=== PATIENT | female | born 1990 | race Caucasian/White ===

== ENCOUNTER 2019-10-14 16:35 | Emergency (ER) | payer OTHER, SELFPAY ==
[2019-10-14 17:27] VITALS: BP 131/81; PULSE 83; RESP 16; TEMP 37.3; O2SAT 100
--- NOTE | 2019-10-14 17:51 | ED.GENADULT ---
HPI - General Adult General Chief complaint: Upper Respiratory Infection <González Lin PA-C - Last Filed: 10/14/19 17:57> Stated complaint: ST <González Lin PA-C - Last Filed: 10/14/19 17:57> Time Seen by Provider: 10/14/19 17:40 <JAG Beatty Last Filed: 10/14/19 17:57> Source: patient <González Lin PA-C - Last Filed: 10/14/19 17:57> Mode of arrival: ambulatory <JAG Beatty Last Filed: 10/14/19 17:57> Limitations: no limitations <González Lin PA-C - Last Filed: 10/14/19 17:57> History of Present Illness HPI narrative: Patient is a 29-year-old female who presents with sore throat for 2 days with subjective fever with chills denies any other URI symptoms or any vomiting or diarrhea took [id number] medications this morning with minimal improvement notes moderate aching pain to the throat made worse with swallowing. <González Lin PA-C - Last Filed: 10/14/19 17:57> Related Data Allergies/adverse reactions: Allergies Allergy/AdvReac Type Severity Reaction Status Date / Time NKDA Allergy Mild Uncoded 03/05/10 12:45 <González Lin PA-C - Last Filed: 10/14/19 17:57> Review of Systems Review of Systems: All systems reviewed & are unremarkable except as noted in HPI and below <González Lin PA-C - Last Filed: 10/14/19 17:57> [facility] Family History Family History: Family History (Updated 12/14/17 @ 10:06 by DOCTOR UNKNOWN) Grandparent Diabetes mellitus Cerebrovascular accident Sibling Family history of mental disorder Depression Mother Depression Family history of chronic obstructive pulmonary disease <González Lin PA-C - Last Filed: 10/14/19 17:57> Social History Social History: Social History (Updated 10/14/19 @ 17:52 by González Lin PA-C) Smoking status: Never smoker Substance use type: marijuana Gender identity (if verbalized by the patient): Male <JAG Beatty Last Filed: 10/14/19 17:57> Exam Narrative: Exam Narrative: GENERAL: Well-appearing, well-nourished, and in no acute distress. HEAD: Normocephalic, atraumatic. EYES: PERRLA and EOMI. ENT: Nares clear, no rhinorrhea or epistaxis. Mucous membranes moist. Oropharynx with erythema and tonsillar hypertrophy and without exudate or other lesions. Bilateral TMs pearly petersen nonbulging. Uvula midline no trismus or drooling NECK: Supple. anterior adenopathy noted CHEST: Clear to auscultation. No respiratory distress. No wheezes rales or rhonchi HEART: Regular rate and rhythm. No murmur heard. EXTREMITIES: Normal range of motion. No edema. SKIN: Warm, dry, no rash. NEURO: No focal deficits. Alert and oriented x3. PSYCH: Normal mood and affect. Cranial nerves II through XII grossly intact <JAG Beatty Last Filed: 10/14/19 17:57> Course Course Emergency Course: Patient with strep pharyngitis in the room in no distress <JAG Beatty Last Filed: 10/14/19 17:57> Vital Signs Vital signs: Vital Signs Temperature 99.2 F 10/14/19 17:27 Pulse Rate 83 10/14/19 17:27 Respiratory Rate 16 10/14/19 17:27 Blood Pressure 131/81 10/14/19 17:27 Pulse Oximetry 100 10/14/19 17:27 Temperature 99.2 F 10/14/19 17:27 Pulse Rate 83 10/14/19 17:27 Respiratory Rate 16 10/14/19 17:27 Blood Pressure 131/81 10/14/19 17:27 Pulse Oximetry 100 10/14/19 17:27 <JAG Beatty Last Filed: 10/14/19 17:57> Vital Signs Temperature 99.2 F 10/14/19 17:27 Pulse Rate 83 10/14/19 17:27 Respiratory Rate 16 10/14/19 17:27 Blood Pressure 131/81 10/14/19 17:27 Pulse Oximetry 100 10/14/19 17:27 Temperature 99.2 F 10/14/19 17:27 Pulse Rate 83 10/14/19 17:27 Respiratory Rate 16 10/14/19 17:27 Blood Pressure 131/81 10/14/19 17:27 Pulse Oximetry 100 10/14/19 17:27 <Kelly Monroe MD - Last Filed: 10/14/19
[2019-10-14] MEDS: IBUPROFEN 600 MG TABLET PO (17:54)
== END 2019-10-14 18:35 | disposition home or self-care (01) ==
LOC: ANHED 18:07
PROVIDERS: Emergency Provider General Practice
DX: J02.0 Streptococcal pharyngitis (principal)
CPT/HCPCS: 87880; 96372; 99283; A9270; J1100

== ENCOUNTER 2022-01-06 09:09 | Emergency (ER) | payer OTHER, SELFPAY ==
[2022-01-06 09:18] VITALS: BP 132/74; PULSE 108; RESP 18; TEMP 37.3; O2SAT 99
--- NOTE | 2022-01-06 09:42 | ED.GENADULT ---
HPI - General Adult General Chief complaint: Unspecified Stated complaint: body aches, fever, headache Time Seen by Provider: 01/06/22 09:27 History of Present Illness HPI narrative: 31-year-old female presents to the emergency room for evaluation of a headache and body aches. Patient is also reporting a subjective fever. Patient unknown if she has been exposed to anybody with COVID or influenza. Patient denies shortness of breath, cough, difficulty breathing, nausea vomiting, sore throat, or sinus congestion. Related Data Allergies Allergy/AdvReac Type Severity Reaction Status Date / Time No Known Allergies Allergy Verified 01/06/22 09:20 Review of Systems Review of Systems: CONSTITUTIONAL: Reports fever EYES: Denies visual changes, redness, or discharge. ENT: Denies rhinorrhea, congestion, sore throat, or otalgia. CARDIOVASCULAR: Denies chest pain, palpitations, or edema. RESPIRATORY: Denies cough or dyspnea. GASTROINTESTINAL: Denies abdominal pain, nausea, vomiting, or diarrhea. GENITOURINARY: Denies dysuria or hematuria. SKIN: Denies rash or itching. MUSCULOSKELETAL: Reports body aches NEUROLOGIC: Denies headache, numbness, dizziness, or weakness. PSYCHIATRIC: Denies anxiety or depression. [facility] Family History Family History Grandparent Diabetes mellitus Cerebrovascular accident Sibling Family history of mental disorder Depression Mother Depression Family history of chronic obstructive pulmonary disease Social History Social History Smoking status: Never smoker Substance use type: marijuana Gender identity (if verbalized by the patient): Male Exam Narrative: GENERAL: Well-nourished, appears ill. HEAD: Normocephalic, atraumatic. EYES: PERRLA and EOMI. ENT: Nares clear, no rhinorrhea or epistaxis. Mucous membranes moist. Oropharynx without tonsillar hypertrophy exudate or other lesions. Bilateral TMs pearly petersen nonbulging NECK: Supple. No adenopathy or masses. No carotid bruits or JVD CHEST: Clear to auscultation. No respiratory distress. No wheezes rales or rhonchi HEART: Regular rate and rhythm. No murmur heard. Normal peripheral pulses. ABDOMEN: Soft, nontender, obese, normal active bowel sounds. EXTREMITIES: Normal range of motion. No edema. SKIN: Warm, dry, no rash. NEURO: No focal deficits. Alert and oriented x3. PSYCH: Normal mood and affect. Course Vital Signs Vital signs: Vital Signs Temperature 37.3 C 01/06/22 09:18 Pulse Rate 108 H 01/06/22 09:18 Respiratory Rate 18 01/06/22 09:18 Blood Pressure 132/74 01/06/22 09:18 Pulse Oximetry 99 01/06/22 09:18 Temperature 37.3 C 01/06/22 09:18 Pulse Rate 108 H 01/06/22 09:18 Respiratory Rate 18 01/06/22 09:18 Blood Pressure 132/74 01/06/22 09:18 Pulse Oximetry 99 01/06/22 09:18 Medical Decision Making Vital Signs Vital Signs: Vital Signs Temperature 37.3 C 01/06/22 09:18 Pulse Rate 108 H 01/06/22 09:18 Respiratory Rate 18 01/06/22 09:18 Blood Pressure 132/74 01/06/22 09:18 Pulse Oximetry 99 01/06/22 09:18 Temperature 37.3 C 01/06/22 09:18 Pulse Rate 108 H 01/06/22 09:18 Respiratory Rate 18 01/06/22 09:18 Blood Pressure 132/74 01/06/22 09:18 Pulse Oximetry 99 01/06/22 09:18 Lab Data Labs: Lab Results 01/06/22 Range/Units 09:34 Influenza A (RT-PCR) Negative (Negative) Influenza B (RT-PCR) Negative (Negative) SARS-CoV-2 RNA (RT-PCR) Positive A Discharge Plan Discharge Clinical Impression: COVID Patient Disposition: Home, Self-Care Condition: Stable Instructions: Antibiotic Form Additional Instructions: Recommend taking Tylenol for body aches and fever. Follow-up with TRAFFIC SAFETY ADMINISTRATOR as necessary. Continue to hydrate. Recommend quarantining for 5 days following onset of symptoms. Prescriptions: No Action a
[2022-01-06 10:19] LABS: Influenza A QL RT-PCR Negative (Negative); Influenza B QL RT-PCR Negative (Negative); SARS-CoV-2 RNA PCR Positive
[2022-01-06 11:20] VITALS: BP 129/74; PULSE 97; RESP 18; O2SAT 99
== END 2022-01-06 11:22 | disposition home or self-care (01) ==
PROVIDERS: Emergency Medicine; Emergency Provider Nurse Practitioner Family; PCP Advanced Practice Midwife
DX: U07.1 COVID-19 (principal)
CPT/HCPCS: 87502; 99283; C9803; U0003; U0005

== ENCOUNTER 2022-05-21 06:37 | Inpatient (IN) | payer OTHER, SELFPAY ==
[2022-05-21] VITALS (138 sets, daily range): BP systolic 86–164; BP diastolic 46–98; PULSE 66–136; RESP 15–17; TEMP 36.6–37.2; O2SAT 74–100; BMI 51.5
[2022-05-21 07:23] LABS: Basophils Percent Auto 0.3 % (0.2-1.2); Eosinophils Absolute Auto 0.1 K/mm3 (0-0.3); Eosinophils Percent Auto 0.6 % (0-4.4); Hematocrit 37.5 % (37.0-47.0); Hemoglobin 12.3 g/dL (12.0-15.0); Immature Granulocyte Absolute 0.12 K/mm3 (0.00-0.031); Immature Granulocyte Percent A 0.8 % (0-0.5); Lymphocytes Percent Auto 19.8 % (18.3-44.2); Mean Corpuscular HGB Conc 32.8 g/dl (32-36); Mean Corpuscular Hemoglobin 29.3 pg (26-34); Mean Corpuscular Volume 89.3 fl (80-100); Mean Platelet Volume 10.6 fl (7.4-10.4); Monocytes Percent Auto 6.3 % (2.6-8.5); Neutrophils Absolute Auto 11.3 K/mm3 (1.3-6.7); Neutrophils Percent Auto 72.2 % (45.5-73.1); Platelet Count Result 265 k/mm3 (150-375); Red Cell Distribution Width 14.2 % (11.5-14.5); White Blood Count 15.7 K/mm3 (4.5-10.0)
--- NOTE | 2022-05-21 07:33 | LDADM ---
This patient, Zofia Rodríguez, was admitted to Labor/Delivery/Recovery 105 on 05/21/22 at 06:37. Plans for labor, pain management and were discussed with patient. Patient/family oriented to hospital policies and general routines including ID bracelet, bed and alarms, visiting hours, pain management, procedures, bathroom and other care routines, personal items, smoking policy, room service/diet and guest tray routines, infant security routines, and visiting hours. Patient/Family are encouraged to report perceived risks to care and to ask questions if they do not understand what they are told or what they should do. See OBIX for further documentation.
[2022-05-21 07:45] LABS: Glucose Point of Care 98 mg/dl (65-105)
[2022-05-21] MEDS: AMPICILLIN 2 GM/NS 100 ML 2 GM/100 ML BAG IVPB (07:56)
[2022-05-21] MEDS: LACTATED RINGERS 1,000 ML 125 ML IV CONT ×3 (07:56→16:04)
--- NOTE | 2022-05-21 09:01 | WPDOBADMIT ---
Obstetrics - Admit Note Admission Note: record reviewed. No pertinent additions to the history and/or any subsequent changes in the physical findings that are not consistent with the expected course of the were found. IOL at 39 weeks gestation, GDMA-2, 5 units NPH at hs, hx covid during , GBS positive, anticipate vaginal delivery Additions to the history and/or subsequent changes in the physical findings follow. None.
[2022-05-21] MEDS: OXYTOCIN 30 UNITS/NS 500 ML 30 UNITS/500 ML BAG IV CONT (09:32)
--- NOTE | 2022-05-21 09:55 | WPDANESEPP ---
Anes - Eval Pre Procedure Procedure: labor epidural Date/Time: 05/21/22 09:55 Preop Diagnosis: labor pain Pre Op Diagnosis: IOL Patient Data Age: 32 Gender: F Height: 1.63 m Weight: 136 kg Last Vital Signs Pulse 90 05/21/22 09:01 BP 137/76 05/21/22 09:01 O2 Del Method Room Air 05/21/22 07:30 Allergies Allergy/AdvReac Type Severity Reaction Status Date / Time No Known Allergies Allergy Verified 05/03/22 13:11 Home Medications Medication Instructions Recorded Confirmed Type aspirin 81 mg tablet 81 mg PO DAILY 05/03/22 05/21/22 History insulin NPH isoph U-100 human 100 5 unit subcut HS 05/03/22 05/21/22 History unit/mL subcutaneous suspension (Humulin N NPH U-100 Insulin (isophane susp)) prenat.vits,maikol,fkh-rnzv-qcthe 1 tablet PO DAILY 05/03/22 05/21/22 History Laboratory Tests 05/21/22 05/21/22 05/21/22 07:18 07:18 07:18 WBC 15.7 K/mm3 H K/mm3 (4.5-10.0) RBC 4.20 M/mm3 M/mm3 (4.2-5.4) Hgb 12.3 g/dL g/dL (12.0-15.0) Hct 37.5 % % (37.0-47.0) MCV 89.3 fl fl (80-100) MCH 29.3 pg pg (26-34) MCHC 32.8 g/dl g/dl (32-36) RDW 14.2 % % (11.5-14.5) Plt Count 265 k/mm3 k/mm3 (150-375) MPV 10.6 fl H fl (7.4-10.4) Immature Gran % (Auto) 0.8 % H % (0-0.5) Neut % (Auto) 72.2 % % (45.5-73.1) Lymph % (Auto) 19.8 % % (18.3-44.2) [place] % (Auto) 6.3 % % (2.6-8.5) Eos % (Auto) 0.6 % % (0-4.4) Baso % (Auto) 0.3 % % (0.2-1.2) Lymph # (Auto) 3.10 K/mm3 K/mm3 (0.9-3.2) [place] # (Auto) 1.0 K/mm3 H K/mm3 (0.1-0.6) Eos # (Auto) 0.1 K/mm3 K/mm3 (0-0.3) Baso # (Auto) 0.0 K/mm3 K/mm3 (0.0-0.1) Abs Immat Gran (auto) 0.12 K/mm3 H K/mm3 (0.00-0.031) Absolute Neuts (auto) 11.3 K/mm3 H K/mm3 (1.3-6.7) Absolute Nucleated RBC 0.0 K/mm3 K/mm3 (0.0-0.012) Nucleated RBC % 0.0 % % (0.0-0.2) POC Capillary Glucose RPR Pending Blood Type A Positive Antibody Screen Negative 05/21/22 07:23 WBC RBC Hgb Hct MCV MCH MCHC RDW Plt Count MPV Immature Gran % (Auto) Neut % (Auto) Lymph % (Auto) [place] % (Auto) Eos % (Auto) Baso % (Auto) Lymph # (Auto) [place] # (Auto) Eos # (Auto) Baso # (Auto) Abs Immat Gran (auto) Absolute Neuts (auto) Absolute Nucleated RBC Nucleated RBC % POC Capillary Glucose 98 mg/dl mg/dl (65-105) RPR Blood Type Antibody Screen Patient hx anesthesia problems: none Family hx anesthesia problems: none Results Review: All pre-operative results and documents have been reviewed as part of the pre-operative evaluation. [facility] Family History Family History Grandparent Diabetes mellitus Cerebrovascular accident Hypertension A-fib Sibling Depression Family history of mental disorder Mother Depression Family history of chronic obstructive pulmonary disease Social History Social History Smoking status: Never smoker Substance use: current Substance use type: marijuana Last use: month ago--march 2022 Gender identity (if verbalized by the patient): Male Spiritual care concerns: No Exam Day of Procedure 05/21/22 09:55
[2022-05-21 11:13] LABS: Amphetamine Screen Urine Negative (Negative); Barbiturate Screen Urine Negative (Negative); Benzodiazepines Screen Urine Negative (Negative); Cannabinoid Screen Urine Negative (Negative); Cocaine Screen Urine Negative (Negative); Methadone Screen Urine Negative (Negative); Opiate Screen Urine Negative (Negative); Phencyclidine Screen Urine Negative (Negative)
[2022-05-21] MEDS: AMPICILLIN 1 GM/NS 50 ML 1 GM/50 ML BAG IVPB ×4 (12:00→23:49)
[2022-05-21 12:16] LABS: Glucose Point of Care 94 mg/dl (65-105)
[2022-05-21 16:48] LABS: Glucose Point of Care 84 mg/dl (65-105)
[2022-05-21 20:16] LABS: Glucose Point of Care 72 mg/dl (65-105)
[2022-05-21 21:43] LABS: Glucose Point of Care 73 mg/dl (65-105)
[2022-05-21 23:59] LABS: Glucose Point of Care 70 mg/dl (65-105)
[2022-05-22] VITALS (91 sets, daily range): BP systolic 103–166; BP diastolic 63–120; PULSE 56–126; RESP 16–20; TEMP 36.7–37.3; O2SAT 84–100
[2022-05-22 02:45] LABS: Glucose Point of Care 120 mg/dl (65-105)
[2022-05-22 02:45] LABS: Glucose Point of Care 84 mg/dl (65-105)
[2022-05-22] MEDS: LACTATED RINGERS 1,000 ML 125 ML IV CONT (03:12)
[2022-05-22] MEDS: AMPICILLIN 1 GM/NS 50 ML 1 GM/50 ML BAG IVPB (03:47)
[2022-05-22] MEDS: miSOPROStol 200 MCG TABLET 1000 MCG (05:00)
--- NOTE | 2022-05-22 05:17 | P.PCNOB_ITS ---
OB - Delivery Note Procedure Delivery date: 05/22/22 Procedure: Events: Gestational Diabetes and Positive Group B Strep (GBS) Induction method: Per Pitocin Protocol Delivery augmentation: Rupture of Membranes Delivery monitor: External FHT and Internal Uterine Route of delivery: Laceration Description: Perineal - 2nd Degree and Vaginal Delivery repair: vicryl Specimen: Yes Quantitative Blood Loss (ml): 200 Anesthesia type: Epidural Disposition: Floor [place] Baby Date of : 05/22/22 Time of : 04:48 Weeks of gestation at delivery: 39 gender: Female Weight (pounds): 9 Weight (ounces): 3 presentation: vertex Placenta delivery description: Spontaneous Cord Vessel Description: 3 Vessels and Clamped/Cut Narrative: head delivered OA,no rotation, reached in and posterior shoulder unable to deliver. yossi and suprapubic pressure from maternal left. able to rotate shoulder and was able to slowly deliver it under the pubic bone, baby followed slowly, cord around neck x 1 body x 1, baby moving all extremities, baby to warmer for further evaluation, newspaper delivery counselor at delivery
[2022-05-22] MEDS: CLINDAMYCIN 900 MG/D5W 50 ML 900 MG/50 ML PIGGYBACK 50 MG IVPB (05:25)
[2022-05-22] MEDS: DEXTROSE 5% IVPB (05:50)
[2022-05-22] MEDS: GENTAMICIN SULFATE IVPB (05:50)
[2022-05-22] MEDS: WITCH HAZEL 40 PADS 1 PAD TOPICAL (06:47)
[2022-05-22] MEDS: BENZOCAINE 20% AER SPR (*SP) 56 GM CAN 1 SPRAY TOPICAL (06:47)
[2022-05-22] MEDS: IBUPROFEN 600 MG TABLET PO ×2 (06:47→13:04)
--- NOTE | 2022-05-22 07:48 | PC.NURSE ---
Patient transferred to post room # via ( 563 ). Support person present. Oriented to unit, room, information board, rooming in, admission packet and security measures. Patient verbalizes understanding.
[2022-05-22] MEDS: MULTIVIT/MIN/PREN/FOL AC/IRON TABLET 1 TAB PO (08:21)
[2022-05-22] MEDS: LANOLIN (LANSINOH) 7.5 GM CREAM 1 APPLIC TOPICAL (08:21)
[2022-05-22] MEDS: DOCUSATE SODIUM 100 MG CAPSULE PO ×2 (08:21→16:50)
[2022-05-22] MEDS: TETANUS,DIPHTHERIA,AC PERTUSSIS ADULT (0.5 ML) BOOSTRIX IM (16:46)
[2022-05-23 00:30] VITALS: BP 125/76; PULSE 87; RESP 18; TEMP 36.6; O2SAT 99
[2022-05-23] MEDS: IBUPROFEN 600 MG TABLET PO ×2 (04:31→19:11)
[2022-05-23 04:34] VITALS: BP 118/71; PULSE 76; RESP 18; TEMP 36.4; O2SAT 100
[2022-05-23 05:17] LABS: Hematocrit 33.1 % (37.0-47.0); Hemoglobin 10.6 g/dL (12.0-15.0)
[2022-05-23 07:05] LABS: Rapid Plasma Reagin Non-Reactive (NonReactive)
[2022-05-23 08:00] VITALS: BP 125/77; PULSE 83; RESP 18; TEMP 36.4; O2SAT 99
--- NOTE | 2022-05-23 08:22 | PM.OBPNVD ---
OB - PN: Subj Subjective Date/time seen: 05/23/22 08:22 Patient comments: no complaints, pain well controlled, incisional pain, tolerating diet and flatus present OB - PN: Obj Data Labs CBC & Chem 7: 05/23/22 05:04 Labs: Laboratory Results - last 24 hr 05/21/22 05/23/22 07:18 05:04 Hgb 10.6 L Hct 33.1 L RPR Non-reactive OB - PN A/P Plan day: 1 Plan: routine care Comments: No problems, routine care Time Spent With Patient Time: Total time spent is greater than 50% in coordination of care (as documented) at patient's floor/unit and/or counseling patient: Exam Const: General: comfortable, no acute distress and alert Resp: Effort & Inspection: normal respiratory effort Auscultation: no crackles, no rales and no rhonchi Cardio: Rate: regular rate Heart sounds: no click, no murmurs and no rubs GI: Inspection: non-distended GI Palp: No Tenderness to palpation present (GI) Auscultation: normal bowel sounds Other: Incision - CDI Extrem: General: normal to inspection, no pedal edema and no calf tenderness
--- NOTE | 2022-05-23 08:56 | WPDANLDPN2 ---
Anes-Prog Note L&D Date/Time: 05/23/22 08:56 Comfortable throughout: labor and delivery Neuraxial method: epidural Epidural/Spinal procedure site: clean & non-tender Neuro status: Neuro function grossly intact. Cardiovascular status: normal Respiratory status: normal Airway patency: baseline Mental status: baseline Post-Op hydration status: normal Vital Signs: Last Vital Signs Temp 36.4 C 05/23/22 04:34 Pulse 76 05/23/22 04:34 Resp 18 05/23/22 04:34 BP 118/71 05/23/22 04:34 Pulse Ox 100 05/23/22 04:34 O2 Del Method Room Air 05/22/22 20:28 Pain score (VAS): 1 Patient feedback: Patient satisfied with anesthetic care.
[2022-05-23] MEDS: MULTIVIT/MIN/PREN/FOL AC/IRON TABLET 1 TAB PO (12:38)
[2022-05-23] MEDS: DOCUSATE SODIUM 100 MG CAPSULE PO (12:38)
--- NOTE | 2022-05-23 13:52 | PC.NURSE ---
Introductions were made, then consulted with patient to assess needs related to . Mother led the conversation with her?plans to feed?her infant and she is with no pain or discomfort. Resources provided for inpatient and outpatient services using a resource guide and mom/baby guide. Mother voiced understanding of information and will call if there is a request for assistance. Reported to primary RN.
[2022-05-23 19:10] VITALS: BP 139/85; PULSE 88; RESP 16; TEMP 36.7; O2SAT 100
--- NOTE | 2022-05-24 07:36 | P.PNOB_ITS ---
OB - PN: Subj Subjective Date/time seen: 05/24/22 07:36 Patient comments: no complaints and pain well controlled baby status: doing well [place] feeding status: exclusively breast feeding OB - PN: Obj Data Labs CBC & Chem 7: 05/23/22 05:04 OB - PN A/P Plan day: 2 Plan: routine care and discharge home Time Spent With Patient Time: Total time spent is greater than 50% in coordination of care (as documented) at patient's floor/unit and/or counseling patient: Time with patient: less than 15 minutes Exam Narrative: NAD abdomen soft, nontender, fundus firm below the umbilicus Extremities nontender, 2+ edema
--- NOTE | 2022-05-24 07:38 | P.DS_ITS ---
DS: Admitting Diagnosis Discharge Date 05/24/22 Admitting Diagnosis term , GDMA2 DS: Discharge Diagnosis Discharge Diagnosis (1) Gestational diabetes: Code(s): O24.419 - Gestational diabetes mellitus in , unspecified control Status: Acute (2) , delivered: Code(s): O80 - Encounter for full-term uncomplicated delivery Status: Acute OB - DS: Summary Hospital Course Hospital Course: Zofia was admitted for IOL. She proceeded to have a vaginal delivery with a mild shoulder dystocia. her course was uncomplicated. She was discharged home on day 2. OB Procedures : NST and Ultrasound OB Procedures Intrapartum: Spontaneous Vag Delivery OB Procedures: : None Peripartum Data Delivery Method: Natural Vaginal complications: none Status at Discharge Functional status at discharge: independent ambulation Time Spent with Patient Time attestation: Total time spent providing and/or coordinating discharge services: Exam Narrative: NAD abdomen soft, appropriately tender Ext non tender, 1+ edema DS: Data Data Completed and Pending Pending studies at discharge: Pending at discharge 05/22/22 04:52 Surgical [PTH] Routine Discharge Plan Discharge Attending physician on discharge: Maegan Grigsby Discharging Clinician: Meagan Grigsby Anticipated Discharge Date/Time: 05/24/22 07:37 Patient Disposition: Home, Self-Care Activity: pelvic rest Diet: regular Patient Instructions: Antibiotic Form Stand Alone Forms: General Discharge Information Follow-up/Referrals: Cindy Seals MD [Physician] - 4 Weeks Discharge Medications: Continued #2 Tablet 1 tablet PO DAILY Discontinued Humulin N NPH U-100 Insulin 100 unit/mL Suspension 5 unit SUBCUT HS Adult Low Dose Aspirin 81 mg Tablet 81 mg PO DAILY Date of admission: 05/21/22 06:37 Primary Care Provider: PHYSICIAN,ELECTRIC ACCOUNTING MACHINE OPERATOR Admitting Provider: Cindy Seals Attending physician on admission: Cindy Seals Condition: Stable
[2022-05-24 08:20] VITALS: BP 132/76; PULSE 75; RESP 18; TEMP 36.6; O2SAT 100
[2022-05-24] MEDS: IBUPROFEN 600 MG TABLET PO (09:23)
[2022-05-24] MEDS: MULTIVIT/MIN/PREN/FOL AC/IRON TABLET 1 TAB PO (09:24)
[2022-05-24] MEDS: DOCUSATE SODIUM 100 MG CAPSULE PO (09:24)
--- NOTE | 2022-05-24 09:53 | PC.NURSE ---
[id number] - Introductions were made to father of baby. Mother is in the shower. Resources provided for inpatient and outpatient services using a resource guide. Father voiced he would have mother call for a latch assessment with the next feeding. [id number] Introductions were made, then consulted with patient to assess needs related to . Mother led the conversation with her experience feeding her infant so far. Mother works well with her . Encouraged understanding of the benefits of skin to skin (unwrapping and placing vertically on her chest), responsive feeding and how to watch for early feeding signs, frequency of feeding on demand about every 8-12 times in 24 hours (every 2-3 hours), milk production, duration of feeding, signs of adequate intake/output and how to record on the feeding sheet. Reviewed positioning and ear, shoulder, hip alignment, supporting the breast, asymmetrical latch (off-center), and leading with the chin with a big open side gape. Infant latched optimally to the left breast in laid-back cross cradle position. Education given to mother of how to visualize suck/swallow ratios and drinking at the breast. was able to maintain latch without discomfort to mother. Nipple care reviewed with optimal latch and good positioning. Resources used to facilitate learning were used with the mom and baby guide. Mother voiced understanding of responsive feedings, stimulating with skin to skin, hand expressed colostrum, massage touch, talking to infant to encourage if it has been 2 -3 hours since the start of the last , to call if infant does not latch or there is discomfort with . Reported to primary RN.
[2022-05-24] MEDS: MEASLES,MUMPS,RUBELLA VACCINE 0.5 ML VIAL SUB-Q (10:41)
--- NOTE | 2022-05-24 16:46 | PC.NURSE ---
[id number] Patient was given the opportunity to view the discharge video Mother & Baby Care, The First Two Weeks and to ask questions. Patient declined viewing the video and has been given the mother/baby guide for home reference. She stated she will watch it at home
== END 2022-05-24 13:27 | disposition home or self-care (01) | DRG 560 ==
LOC: ANHOB2 05-24 11:08 → ANHLDR 05-25 09:18 → ANHOB2 05-25 09:18
PROVIDERS: Advanced Practice Midwife; Obstetrics & Gynecology; Admitting Provider Obstetrics & Gynecology; Visit Provider Obstetrics & Gynecology
DX: O66.0 Obstructed labor due to shoulder dystocia (principal); O70.1 Second degree perineal laceration during delivery; O24.429 Gestational diabetes mellitus in childbirth, unspecified control; Z86.16 Personal history of COVID-19; O99.824 Streptococcus B carrier state complicating childbirth; O77.0 Labor and delivery complicated by meconium in amniotic fluid; O69.81X0 Labor and delivery complicated by cord around neck, without compression, not applicable or unspecified; O76 Abnormality in fetal heart rate and rhythm complicating labor and delivery; Z3A.39 39 weeks gestation of pregnancy; Z37.0 Single live birth; Z23 Encounter for immunization
CPT/HCPCS: 36415; 80307; 82948; 85014; 85018; 85025; 86592; 86850; 86900; 86901; 88307; 90686; 90710; 90715; A9270; J0290; J1580; J2590; J2795; J7120